=== PATIENT | male | born 1990 | race Caucasian/White ===

== ENCOUNTER 2018-10-04 02:42 | Emergency (ER) | payer SELFPAY ==
[~2018-10-04] VITALS: Ht 182.9 cm; Wt 99.8 kg
[2018-10-04 02:44] VITALS: BP_SYST 117; BP_SYST 138; BP_DIAS 72; BP_DIAS 92
--- NOTE | 2018-10-04 02:44 | NUR ---
Nikolas lorenzo in [place] - 10/04/18 at 0312 by [facility] Pt lilly [facility] for prebook.
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
[2018-10-04 03:58] VITALS: BP 138/92
--- NOTE | 2018-10-04 03:58 | NUR ---
PATIENT EXAMINED BY DR. BERGER. PATIENT MEDICALLY CLEARED AND RELEASED IN CUSTODY IN STABLE CONDITION. ORIGINAL PRE-BOOK FORM GIVEN TO OFFICER MARICRUZ. DISCHARGE INSTRUCTIONS GIVEN TO OFFICER MARICRUZ. PT RELEASED INTO CUSTODY OF [facility]. NAD NOTED. VSS. AMBULATED STEADY GAIT.
== END 2018-10-04 03:58 ==
LOC: MED 02:42
DX: S00.81XA Abrasion of other part of head, initial encounter (principal); Z02.89 Encounter for other administrative examinations; V89.2XXA Person injured in unspecified motor-vehicle accident, traffic, initial encounter; Y93.89 Activity, other specified; Y92.89 Other specified places as the place of occurrence of the external cause; Y99.8 Other external cause status
CPT/HCPCS: 99283